=== PATIENT | female | born 1980 | race Hispanic/Latino ===

== ENCOUNTER 2024-04-05 21:36 | Emergency (ER) | payer SELFPAY ==
[~2024-04-05] VITALS: Ht 152.4 cm; Wt 53.1 kg
[2024-04-05 22:05] VITALS: PULSE 71; RESP 16; TEMP 98.5; O2SAT 100
[2024-04-05] MEDS ORDERED: AMOX TR-K CLV1 EAC2 PO (22:08)
== END 2024-04-05 22:14 | disposition home or self-care (01) ==
LOC: ER 22:08
DX: R22.9 Localized swelling, mass and lump, unspecified (principal); I10 Essential (primary) hypertension
CPT/HCPCS: 99283